=== PATIENT | male | born 1935 | race Caucasian/White ===

== ENCOUNTER 2019-05-01 07:08 | Day surgery (SDC) | payer MEDICARE, BC ==
[2019-04-30 09:09] LABS: BASOPHILS % (AUTO) 0.8 % (0-1); EOSINOPHILS # (AUTO) 0.3 X10'3 (0-0.9); EOSINOPHILS % (AUTO) 5.4 % (0-6); HEMATOCRIT 47.6 % (42.0-52.0); HEMOGLOBIN 15.5 g/dl (14.0-17.9); LYMPHOCYTES # (AUTO) 1.2 X10'3 (1.1-4.8); LYMPHOCYTES % (AUTO) 24.2 % (21-51); MEAN CORPUSCULAR HEMOGLOBIN 27.3 PG (27.0-31.0); MEAN CORPUSCULAR HGB CONC 32.7 g/dL (33.0-36.5); MEAN CORPUSCULAR VOLUME 83.5 FL (78-98); MEAN PLATELET VOLUME 7.8 FL (7.4-10.4); MONOCYTES # (AUTO) 0.4 X10'3 (0-0.9); MONOCYTES % (AUTO) 8.1 % (2-12); NEUTROPHILS % (AUTO) 61.5 % (42-75); PLATELET COUNT 252 X10'3 (140-440); RED CELL DISTRIBUTION WIDTH 15.8 % (11.5-14.5); WHITE BLOOD COUNT 4.9 X10'3 (4.5-11.0)
[2019-04-30 09:18] LABS: PARTIAL THROMBOPLASTIN TIME 26 SECONDS (22-32)
[2019-04-30 09:55] LABS: BLOOD UREA NITROGEN 20 MG/DL (7-18)
[2019-04-30 09:57] LABS: ALANINE AMINOTRANSFERASE 17 U/L (12-78); ALBUMIN 3.9 G/DL (3.4-5.0); ALKALINE PHOSPHATASE 97 IU/L (46-116); ANION GAP 7 (8-16); ASPARTATE AMINO TRANSFERASE 20 U/L (10-37); BILIRUBIN,TOTAL 0.7 MG/DL (0.1-1.0); BUN/CREATININE RATIO 16.8 (5.4-32.0); CHLORIDE 110 MMOL/L (99-107); CREATININE 1.19 MG/DL (0.60-1.10); GLUCOSE 101 MG/DL (70-104); POTASSIUM 3.8 MMOL/L (3.5-5.1); SODIUM 144 MMOL/L (135-145); TOTAL CARBON DIOXIDE 27.4 MMOL/L (24-32); TOTAL PROTEIN 7.7 G/DL (6.4-8.2); eGFR 58 ML/MIN
[2019-05-01] VITALS (17 sets, daily range): BP systolic 108–190; BP diastolic 57–127
[~2019-05-01] VITALS: Ht 175.3 cm; Wt 94.8 kg
[~2019-05-01 07:08] MED LIST: SIMV80TA2 PO; TRIA1TAB3 PO
[2019-05-01] MEDS ORDERED: AMLO2.5T2 PO (07:38)
[2019-05-01] MEDS ORDERED: LOSA25TA96 PO (07:38)
[2019-05-01] MEDS ORDERED: PANT-47 PO (07:38)
[2019-05-01] MEDS ORDERED: SIMV20TA5 PO (07:38)
[2019-05-01] MEDS ORDERED: BUDE10.22 INH (07:38)
[2019-05-01] MEDS ORDERED: METO-467 PO (07:38)
[2019-05-01] MEDS ORDERED: DET2LAC PO (07:38)
[2019-05-01] MEDS ORDERED: APIX5TAB3 PO (07:38)
[2019-05-01] MEDS ORDERED: MIRA50TA PO (07:38)
[2019-05-01] MEDS ORDERED: FURO-150 PO (07:38)
[2019-05-01] MEDS ORDERED: SPIR25TA5 PO (07:38)
[2019-05-01] MEDS ORDERED: diphenhydrAMINE 25mg capsule PO PRN (07:40)
[2019-05-01] MEDS ORDERED: nitroGLYCERIN 0.4mg SUBLingual tab SL PRN ×2 (07:40→13:15)
[2019-05-01] MEDS ORDERED: normal saline 1,000 ML IV SCH (07:40)
[2019-05-01] MEDS ORDERED: LORazepam 0.5 MG tablet PO PRN (07:40)
[2019-05-01] MEDS ORDERED: midazolam 2 mg/2 ml injection ONE (11:25)
[2019-05-01] MEDS ORDERED: iohexol 350MG/ML 100ml bottle IV ONE (11:26)
[2019-05-01] MEDS ORDERED: LIDOcaine 1% (10mg/ml)w/preservative injection 20ml MDV ONE (11:26)
[2019-05-01] MEDS ORDERED: iohexol 350 MG/ML 50ML vial IV ONE ×2 (11:26→12:26)
[2019-05-01] MEDS ORDERED: fentaNYL/PF 50MCG/1 ML 2ML syringe ONE (11:26)
[2019-05-01] MEDS ORDERED: normal saline 1000ml 1,000 ML IV SCH (13:15)
[2019-05-01] MEDS ORDERED: ondansetron/PF 4mg/2ml inj IV PRN (13:15)
[2019-05-01] MEDS ORDERED: HYDROcodone/acetaminophen 10/325mg tab PO PRN (13:15)
[2019-05-01] MEDS ORDERED: proCHLORperazine 10 MG/2 ml inj IV PRN (13:15)
[2019-05-01] MEDS ORDERED: HYDROcodone/acetaminophen 5mg/325mg tablet PO PRN (13:15)
[2019-05-01] MEDS ORDERED: OXAZEpam 15mg capsule PO PRN (13:15)
== END 2019-05-01 19:25 | disposition home or self-care (01) ==
LOC: SSTAY O 07:08
PROVIDERS: ATTEND Internal Medicine Cardiovascular Disease
DX: R06.00 Dyspnea, unspecified (principal); I25.10 Atherosclerotic heart disease of native coronary artery without angina pectoris; I10 Essential (primary) hypertension; E78.5 Hyperlipidemia, unspecified; J44.9 Chronic obstructive pulmonary disease, unspecified; Z86.711 Personal history of pulmonary embolism; Z86.718 Personal history of other venous thrombosis and embolism; Z79.01 Long term (current) use of anticoagulants
CPT/HCPCS: 36415; 71046; 80053; 85025; 85610; 85730; 93460; 99152; 99153; C1769; J1644; J2001; J2250; J3010; J7030; Q0163; Q9967; A4620; A6258; C1760

== ENCOUNTER 2019-06-12 08:30 | Outpatient (CLI) | payer MEDICARE, BC ==
[~2019-06-12] VITALS: Ht 175.3 cm; Wt 90.7 kg
[~2019-06-12 08:30] MED LIST changes: +AMLO2.5T2 PO; +APIX5TAB3 PO; +BUDE10.22 INH; +DET2LAC PO; +FURO-150 PO; +LOSA25TA96 PO; +METO-467 PO; +MIRA50TA PO; +PANT-47 PO; +SIMV-42 PO; +SPIR25TA5 PO
[2019-06-12 09:21] LABS: ABG BASE EXCESS -1.5 mmol/L (-2.0-3.0); ABG HCO3 21.5 mmol/L (22.0-26.0); ABG OXYGEN SATURATION 97.4 % (95-98); ABG PCO2 (T) 31.5 mmHg (35.0-45.0); ABG PH (T) 7.451 (7.350-7.450); ABG PO2 (T) 83.9 mmHg (83-108); ALLEN'S TEST Positive; FMetHb 0.3 % (0.3-1.12); FO2Hb 96.1 % (94-100); TOTAL HEMOGLOBIN 14.1 G/dl (14.0-17.9)
[2019-06-12] MEDS ORDERED: albuterol 2.5 MG/3 ML nebule NEB ONE (09:35)
== END 2019-06-12 23:59 | disposition home or self-care (01) ==
LOC: RT 08:30
PROVIDERS: ATTEND Internal Medicine Cardiovascular Disease
DX: R06.02 Shortness of breath (principal); R06.09 Other forms of dyspnea; I10 Essential (primary) hypertension; Z87.891 Personal history of nicotine dependence
CPT/HCPCS: 36600; 82803; 85018; 94010; 94618; 94727; 94729

== ENCOUNTER 2021-01-25 10:25 | Outpatient (CLI) | payer MEDICARE, BC | END 2021-01-25 23:59 | disposition home or self-care (01) | LOC: RT 10:25 | PROVIDERS: ATTEND Internal Medicine | DX: R06.02 Shortness of breath (principal) | CPT/HCPCS: 94010; 94727; 94729 ==